=== PATIENT | female | born 1970 | race Caucasian/White ===

== ENCOUNTER → 2018-04-03 16:07 | Outpatient (CLI) | payer BC, SELFPAY ==
--- NOTE | 2018-04-03 16:19 | MM_ITS ---
MM Dig screening mamm BI w/CAD ORDERING PHYSICIAN : Armen Ware MD PATIENT AGE: 47 years GENDER: Female COMPARISON: April 20172015, [facility] April 14, 2015 diagnostic right mammogram Also March 2014, January 2013, from [facility] INDICATION: ITS.REASON: Routine Screening Mammogram. No hormones no new complaints. Noncontributory family history. TECHNIQUE: Standard CC and MLO images were obtained. R2 CAD reviewed. FINDINGS: Relatively smaller volume breast bilaterally make this a slightly difficult mammogram for consistent positioning and thus interpretation. Mild asymmetry No suspicious or dominant mass. No suspicious calcifications. . RIGHT BREAST: No suspicious or definitive new findings . On the cc view there is area of density just lateral to the nipple which is stable/unchanged appearance since one of the 2015 cc view. This same density was seen in 2016 and 17 as well, but slightly accentuated due to overlapping shadows summation shadows on today's study. Probably follow-up in one year adequate . Also increased minimal density at margin of image. Inferior right breast on MLO view appears similar to 2016 exam. LEFT BREAST:No significant new findings. Unchanged. Follow-up in one year IMPRESSION: 1. No new areas of significant concern. Overall Stable bilateral mammogram, when compared back to 2014/2015 studies. Bilateral follow-up in one year recommended; and should be encouraged/emphasized BI-RADS Category: 2 Benign Finding(s) RECOMMENDED FOLLOW-UP: 1YR 1 YEAR FOLLOW-UP (A letter has been sent to the patient regarding results of the study.)
== END ==
PROVIDERS: Visit Provider Nurse Practitioner Obstetrics & Gynecology
DX: Z12.31 Encounter for screening mammogram for malignant neoplasm of breast (principal)
CPT/HCPCS: 77067

== ENCOUNTER → 2018-07-06 10:30 | Outpatient (CLI) | payer BC, SELFPAY ==
[2018-07-06 11:56] LABS: Alanine Aminotransferase 18 U/L (12-78); Albumin Level 3.2 gm/dL (3.4-5.0); Albumin/Globulin Ratio 0.9 (1.1-1.8); Alkaline Phosphatase 78 U/L (46-116); Aspartate Amino Transferase 12 U/L (15-37); Bilirubin,Total 0.4 mg/dL (0.2-1.0); Blood Urea Nitrogen 12 mg/dL (7-18); Calcium 8.4 mg/dL (8.5-10.1); Carbon Dioxide 28 mmol/L (21.0-32.0); Chloride 103 mmol/L (98-107); Chol/HDL Ratio 2.5 (1-3.5); Cholesterol 166 mg/dL (140-200); Creatinine,Serum 0.74 mg/dL (0.55-1.02); Estimated Glomerular Filt Rate 84 ml/min (>60); GFR (African American) 102 ML/MIN (>60); Globulin 3.6 gm/dl (1.3-3.2); Glucose 85 mg/dL (74-106); HDL Cholesterol 67 mg/dL (29-89); LDL Cholesterol 82 mg/dL (0-130); Sodium 139 mmol/L (136-145); Total Protein,Serum 6.8 gm/dL (6.4-8.2); Triglycerides 83 mg/dL (30-200); VLDL Cholesterol 17 mg/dL (0-40)
[2018-07-06 12:20] LABS: Basophils % 0.4 % (0.1-2.0); Eosinophils # 0.1 K/mm3 (0.0-0.4); Eosinophils % 1.2 % (0.1-12.0); Hematocrit 38.6 % (37.0-47.0); Hemoglobin 12.6 g/dL (12.2-16.2); Lymphocytes % 21.7 % (10-50); Mean Corpuscular HGB Conc 32.7 g/dL (31.8-35.4); Mean Corpuscular Volume 91.7 fl (81-99); Mean Platelet Volume 8.5 fl (7.4-10.4); Monocytes # 0.5 K/mm3 (0.1-1.0); Monocytes % 4.8 % (1.7-9.3); Neutrophils # 6.8 K/mm3 (1.8-7.8); Platelet Count 301 K/mm3 (142-424); Red Blood Count 4.21 M/mm3 (4.20-5.40); Red Cell Distribution Width 12.9 % (11.5-17.5); White Blood Count 9.4 K/mm3 (4.8-10.8)
== END ==
PROVIDERS: Visit Provider Nurse Practitioner Obstetrics & Gynecology
DX: Z01.419 Encounter for gynecological examination (general) (routine) without abnormal findings (principal)
CPT/HCPCS: 36415; 80053; 80061; 85025

== ENCOUNTER → 2019-07-11 09:44 | Outpatient (CLI) | payer BC, SELFPAY ==
--- NOTE | 2019-07-11 09:44 | MM_ITS ---
PROCEDURE: MM DIG SCREENING MAMM BI W/CAD CLINICAL INDICATION: Routine Screening Mammogram There is no personal or family history of breast cancer COMPARISON: [facility] DIG MAMM-SCREEN GEOFFREY from 04/18/2016 [facility] DIG MAMM-SCREEN GEOFFREY W/CAD from 04/19/2017 [facility] MM Dig screening mamm BI w/CAD from 04/03/2018 TECHNIQUE: Standard CC and MLO images were obtained. Dell images were performed. FINDINGS: Moderate diffuse fibroglandular densities are seen in both breast and the findings of bilateral and symmetrical. There is no suspicious lesion in either breast and no suspicious microcalcifications. There is a stable tiny nodular benign-appearing density near the axillary tail right breast. IMPRESSION: Fibrofatty parenchyma with no suspicious BI-RAD Category: 2 Benign Finding(s) FOLLOW-UP: 1YR 1 Year Follow-up (A letter has been sent to the patient regarding results of the study.) Dictated by: Dr. Darrius Jackson MD 07/15/2019 11:[address] Darrius Jackson MD in [place] 07/15/2019 11:12
== END ==
PROVIDERS: PCP Nurse Practitioner Obstetrics & Gynecology; Visit Provider Nurse Practitioner Obstetrics & Gynecology
DX: Z12.31 Encounter for screening mammogram for malignant neoplasm of breast (principal)
CPT/HCPCS: 77063; 77067

== ENCOUNTER → 2019-07-11 10:25 | Outpatient (CLI) | payer BC, SELFPAY ==
[2019-07-11 10:52] LABS: Basophils % 0.4 % (0.1-2.0); Eosinophils # 0.1 K/mm3 (0.0-0.4); Eosinophils % 0.7 % (0.1-12.0); Hematocrit 38.6 % (37.0-47.0); Hemoglobin 12.4 g/dL (12.2-16.2); Lymphocytes % 21.2 % (10-50); Mean Corpuscular HGB Conc 32.2 g/dL (31.8-35.4); Mean Corpuscular Hemoglobin 30.4 pg (27.0-31.2); Mean Corpuscular Volume 94.4 fl (81-99); Mean Platelet Volume 7.8 fl (7.4-10.4); Monocytes # 0.4 K/mm3 (0.1-1.0); Monocytes % 4.4 % (1.7-9.3); Neutrophils # 6.8 K/mm3 (1.8-7.8); Neutrophils % 73.4 % (37.0-80.0); Platelet Count 343 K/mm3 (142-424); Red Blood Count 4.09 M/mm3 (4.20-5.40); Red Cell Distribution Width 12.7 % (11.5-17.5); White Blood Count 9.2 K/mm3 (4.8-10.8)
[2019-07-11 12:11] LABS: Alanine Aminotransferase 16 U/L (12-78); Albumin Level 3.4 gm/dL (3.4-5.0); Albumin/Globulin Ratio 1.1 (1.1-1.8); Alkaline Phosphatase 81 U/L (46-116); Anion Gap 11.1 mEq/L (5-15); Aspartate Amino Transferase 12 U/L (15-37); Bilirubin,Total 0.3 mg/dL (0.2-1.0); Blood Urea Nitrogen 9 mg/dL (7-18); Calcium 8.4 mg/dL (8.5-10.1); Carbon Dioxide 28 mmol/L (21.0-32.0); Chloride 104 mmol/L (98-107); Chol/HDL Ratio 2.6 (1-3.5); Cholesterol 164 mg/dL (140-200); Estimated Glomerular Filt Rate 77 ml/min (>60); GFR (African American) 93 ML/MIN (>60); Globulin 3.1 gm/dl (1.3-3.2); Glucose 87 mg/dL (74-106); HDL Cholesterol 62 mg/dL (29-89); LDL Cholesterol 85 mg/dL (0-130); Potassium 4.1 mmoL/L (3.5-5.1); Sodium 139 mmol/L (136-145); Total Protein,Serum 6.5 gm/dL (6.4-8.2); Triglycerides 84 mg/dL (30-200); VLDL Cholesterol 17 mg/dL (0-40)
== END ==
PROVIDERS: Visit Provider Nurse Practitioner Obstetrics & Gynecology
DX: Z01.419 Encounter for gynecological examination (general) (routine) without abnormal findings (principal)
CPT/HCPCS: 36415; 80053; 80061; 85025

== ENCOUNTER 2020-09-21 15:00 | Outpatient (RCR) | payer BC, SELFPAY | END 2020-09-21 15:23 | disposition home or self-care (01) | LOC: OT 15:00 | PROVIDERS: Visit Provider Student in an Organized Health Care Education/Training Program | DX: I63.9 Cerebral infarction, unspecified; R53.1 Weakness | CPT/HCPCS: 97110; 97165; 97530 ==

== ENCOUNTER 2020-09-28 14:00 | Outpatient (RCR) | payer BC, SELFPAY | END 2020-10-18 13:52 | disposition home or self-care (01) | LOC: PT.CARL 14:00 | PROVIDERS: Visit Provider Student in an Organized Health Care Education/Training Program | DX: I63.9 Cerebral infarction, unspecified (principal); R53.1 Weakness | CPT/HCPCS: 97110; 97163 ==

== ENCOUNTER → 2020-12-17 09:52 | Outpatient (CLI) | payer BC, SELFPAY ==
--- NOTE | 2020-12-17 09:59 | MM_ITS ---
PROCEDURE INFORMATION: Exam: MG Screening 3D Mammography Exam date and time: 12/17/2020 9:59 AM Age: 50 years old Clinical indication: Screening mammogram TECHNIQUE: Imaging protocol: Screening tomosynthesis and 2D mammography including computer-aided detection (CAD) when performed. COMPARISON: 1. MG MM DIG SCREENING MAMM BI W/CAD 07/11/2019 9:57 AM 2. MG [facility] MM Dig screening mamm BI w/CAD 04/03/2018 4:24 PM 3. MG [facility] DIG MAMM-SCREEN GEOFFREY W/CAD 04/19/2017 5:01 PM 4. MG [facility] DIG MAMM-SCREEN GEOFFREY 04/18/2016 4:24 PM FINDINGS: MAMMOGRAPHY: Breast composition: There are scattered areas of fibroglandular density. Mass: None. Architectural distortion: No new or suspicious architectural distortion. Calcifications: No new or suspicious calcifications are present Asymmetric density: No new or suspicious asymmetric density is present Skin thickening: None. Axillary adenopathy: None. IMPRESSION: No mammographic evidence of malignancy. Recommend annual screening mammography unless otherwise clinically indicated. ASSESSMENT: BI-RADS category 1: Negative
== END ==
PROVIDERS: PCP Internal Medicine; Visit Provider Internal Medicine
DX: Z12.31 Encounter for screening mammogram for malignant neoplasm of breast (principal)
CPT/HCPCS: 77063; 77067

== ENCOUNTER → 2021-04-20 11:25 | Outpatient (CLI) | payer BC, SELFPAY ==
--- NOTE | 2021-04-20 11:33 | XR_ITS ---
PROCEDURE: XR SHOULDER RT MIN 2V CLINICAL INDICATION: RT SHOULDER TENDONITIS COMPARISON: No exams were available for comparison FINDINGS: No fracture or dislocation. No lytic or blastic change. There is normal mineralization. The joint spaces are well-preserved. No significant degenerative/arthritic changes. No erosive changes evident. 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 IMPRESSION: Negative right shoulder. Right-sided cervical rib Dictated by: Hitesh Shah MD 04/20/2021 13:15 Hitesh Shah MD in [place] 04/20/2021 13:15
== END ==
PROVIDERS: PCP Internal Medicine; Visit Provider Internal Medicine
DX: M77.8 Other enthesopathies, not elsewhere classified (principal)
CPT/HCPCS: 73030

== ENCOUNTER → 2021-04-22 14:16 | Outpatient (CLI) | payer BC, SELFPAY | PROVIDERS: Visit Provider Physician Assistant | DX: Z20.822 Contact with and (suspected) exposure to COVID-19 (principal) | CPT/HCPCS: C9803; U0003; U0005 ==

== ENCOUNTER 2024-09-16 16:26 | Outpatient (CLI) | payer BC, SELFPAY ==
--- NOTE | 2024-09-16 16:30 | MM_ITS ---
PROCEDURE INFORMATION: Exam: MG Bilateral Screening 3D Mammography Exam date and time: 09/16/2024 4:54 PM Age: 54 years old Clinical indication: Screening examination TECHNIQUE: Imaging protocol: Bilateral Screening tomosynthesis and 2D mammography including computer-aided detection (CAD) when performed. COMPARISON: MG MM DIG SCREENING MAMM BI W/CAD 12/17/2020 9:55 AM FINDINGS: MAMMOGRAPHY: Breast composition: There are scattered areas of fibroglandular density. Mass: No suspicious masses. Architectural distortion: None. Calcifications: No suspicious calcifications. Asymmetric density: None. Skin thickening: None. Axillary adenopathy: None. IMPRESSION: No mammographic evidence of malignancy. Annual screening is recommended unless otherwise clinically indicated. ASSESSMENT: BI-RADS Category 1: Negative.
== END 2024-09-16 23:59 | disposition home or self-care (01) ==
LOC: RAD 16:27
PROVIDERS: PCP Nurse Practitioner Family; Visit Provider Nurse Practitioner Family
DX: Z12.31 Encounter for screening mammogram for malignant neoplasm of breast (principal)
CPT/HCPCS: 77063; 77067

== ENCOUNTER 2025-04-02 14:43 | Outpatient (CLI) | payer BC, SELFPAY ==
--- NOTE | 2025-04-02 14:45 | CT_ITS ---
FINAL REPORT TECHNIQUE: Axial CT images were performed from the lung bases through the iliac crests. Coronal and sagittal reformats were submitted.This study was performed with techniques to keep radiation doses as low as reasonably achievable (ALARA). Individualized dose reduction techniques using automated exposure control or adjustment of mA and/or kV according to the patient's size were employed. CLINICAL HISTORY: EPIGASTRIC LUMP COMPARISON: None FINDINGS: CT ABDOMEN WITHOUT CONTRAST: The lung bases are clear. The unenhanced liver parenchyma is homogeneous. The gallbladder is partially contracted. The spleen, pancreas, and adrenals are unremarkable. There is no evidence of nephrolithiasis or hydronephrosis. The stomach is distended with fluid and air. There is no distention of the small bowel. Stool is present in the colon. There is no mass or adenopathy. There is a small fat-containing umbilical hernia present. IMPRESSION: No acute intra-abdominal or intrapelvic process identified. Reviewed, Interpreted and Dictated by Giovana Hernandez MD Transcribed by Hina Ponce Authenticated and [facility]
--- OUTSIDE RECORDS SUMMARY | 2025-04-02 14:48 | XMS_ITS | Clinical Summary ---
Author Organization [facility] Address [address] [place] [address] Care Team Providers Care Starting Gate Driver Name Role Phone Magdalena Christensen MD Primary Care Provider [phone] Yolanda Martinez PA Unavailable [phone] Allergies No known active allergies Medications Multiple Vitamins-Mineral s (MULTIVITAMIN WOMEN PO) Take by mouth. 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 - Presented in August 2020 with [id number] subarachnoid hemorrhage - Underwent initial IR coil embolization August 17, 2020 - 04/26: cerebral catheter angiography showing 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 2.6 x 3.8 mm with a 3.1 mm neck - 05/17: underwent successful flow diversion embolization in IR - Patient is on ASA/Plavix - SBP<160 - Admit to Neuro ICU Resolved Problems Problem Noted Date Diagnosed Date Resolved Date Cerebral aneurysm 05/17/2021 05/17/2021 Immunizations Immunization Administration Dates Next Due Hep B, adult 07/06/1999 Family History Medical History Relation Name Comments Stroke Mother Stroke Other Relation Name Status Comments Mother Other Social History Tobacco Use Types Packs/Day Years Used Date Smoking Tobacco: Never Smokeless Tobacco: Never Tobacco Cessation:Counseling Given: Not Answered Alcohol Use Standard Drinks/Week Comments Yes 0 (1 standard drink = 0.6 oz pur e alcohol) occasionally Comments No Sex and Gender Information Value Date Recorded Sex Assigned at Female 05/17/2021 8:57 AM EST Legal Sex Female 7:46 PM EDT Gender Identity Female 05/17/2021 8:57 AM EST Sexual Orientation Not on file Last Filed Vital Signs Vital Sign Reading Time Taken Comments Blood Pressure 120/87 05/17/2022 2:30 PM EST Pulse 67 05/17/2022 3:00 PM EST Temperature 36.2 C (97.2 F) 05/17/2022 1:52 PM EST Respiratory Rate 24 05/17/2022 3:00 PM EST Oxygen Saturation 93% 05/17/2022 3:00 PM EST Inhaled Oxygen Concentration - - Weight 69 kg (152 lb 1.9 oz) 05/17/2022 10:08 AM EST Height 165.1 cm (5' 5 ) 05/17/2022 10:08 AM EST Body Mass Index 25.31 05/17/2022 10:08 AM EST Plan of Treatment Health Maintenance Due Date Last Done Comments [facility]-Depression Screening 1972 [facility]-HIV Screening 1972 [facility]-Hepatitis C Screening 1972 [facility]-Infant/Child/Adol SDOH Screenings 1972 [facility]- SDOH Screenings 1990 [facility]-Adult SDOH Screenings 1990 [facility]-DTaP,Tdap,and Td Vaccines (1 - Tdap) 1991 [facility]-Hepatitis B Vaccines (2 of 3 - 19+ 3-dose series) 08/03/1999 07/06/1999 [facility]-Pap Smear 11/07/2009 11/07/2006, 10/16, 10/20/2004, Additional history exists [facility]-Cervical Cancer Screening 11/08/2011 [facility]-HPV/Cotest 11/08/2011 11/07/2006, 10/16, 10/20/2004, Additional history exists CT Colonography 2017 Colonoscopy 2017 FIT-DNA 2017 FIT 2017 FOBT 2017 Sigmoidoscopy 2017 [facility]-Colorectal Cancer Screening 2017 [facility]-Breast Cancer Screening 2022 [facility]-Pneumococcal Vaccine: 50+ Years (1 of 1 - PCV) 2022 [facility]-Zoster Vaccines (1 of 2) 2022 ABE-LIKLT-13 Vaccine (3 - season) 2025 08/12/2020, 07/07/2020 [facility]-Influenza Vaccine (#1) 2025 [facility]-Obesity Intervention Completed 05/15/2022 HPV Vaccines Aged Out No longer eligi ble based on patient's age to complete this topic [facility]-HIB Vaccines Aged Out No longer e ligible based on patient's age to complete this topic [facility]-Hepatitis A Vaccines Aged Out No longer eligible based on patient's age to complete this topic [facility]-IPV Vaccines Aged Out No longer e ligible based on patient's age to complete this topic [facility]-Rotavirus Vaccines Aged Out No lo nger eligible based on patient's age to complete this topic Goals Goal Patient Goal Type Associated Problems Recent Progress Patient-Stated? Author Exercise at Least 20 Minutes per Day General No Merly Raza APRN, CANDY Patient to engage in self-care activities General No Merly Raza APRN, DNP Patient will adhere to medication regimen General No Merly Raza APRN, CANDY Medical Devices Implanted Type Area Interviewing Clerk Device Identifier Shelf Expiration Date Model / Serial / Lot 4.5mm X 15mm Mohini Casper Implanted:Qty: 1 on 05/17/2021 by Karen Coats MD at [facility] [employer] 12/27/2022 [id number] / / [id number] Closure Device Vip Angioseal 8 Fr - [id number] Implanted:Qty: 1 on 05/17/2021 by Karen Coats MD at [facility] [id number] 03/17/2022 [id number] / / [id number] Procedures Procedure Name Priority Date/Time Associated Diagnosis Comments CYTO DATA CONVERSION Routine 11/07/2006 12:00 AM EDT from Last 3 Months or Most Recently Relevant to Health Maintenance Results * Cytology (11/07/2006 12:00 AM EDT) 11/07/2006 11/09/2006 Narrative SUNQUEST - 11/14/2006 1:34 PM EDT [facility] MR #: [id number] [facility] L[place] HERNAN[place]Z [place], [place] [address] 1970 (Age: 36) FW Collect Date: 11/07/2006 00:00 Receipt Date: 11/09/2006 00:00 Page 1 DEPARTMENT OF PATHOLOGY AND LABORATORY MEDICINE CYTOPATHOLOGY REPORT Email: [email or web address] ATTENDING MD/Practitioner: Gila Boateng MD Service: [facility] Location: [facility] Reported: 11/14/2006 13:34 Collected: 11/07/2006 00:00 INTERPRETATION A. THIN PREP (CERVICAL/VAGINAL): NEGATIVE FOR INTRAEPITHELIAL LESION OR MALIGNANCY. SHIFT IN KALI SUGGESTIVE OF BACTERIAL VAGINOSIS. SATISFACTORY FOR EVALUATION; ENDOCERVICAL/ TRANSFORMATION ZONE COMPONENT PRESENT. Slide scanned and imaged by [employer] ThinPrep Imaging System with manual review of all selected mark. Electronically Signed Out By JEAN Moreno(ASCP) JEAN Moreno(ASCP) Cervical cytology is a screening test primarily for squamous cancers and precursors and has associated false negative and positive results. New technologies such as liquid based sampling may decrease but will not eliminate all false negative results. Regular screening and follow-up of unexplained clinical signs and symptoms are recommended to minimize false negative results. Please see the ASCCP website (www.asccp.org) for followup recommendations. If HPV testing was requested, correlation with the results is suggested (please call Microbiology at [phone] for results). CLINICAL INFORMATION: Menstrual History: Cyclic Date of Last Menstrual Period: 10/20/06 Contraceptive History: control pills SPECIMEN DESCRIPTION: A: THIN PREP (CERVICAL/VAGINAL) THIN PREP PROCESS CELLULAR ENHANCEMENT ICD: V76.2 CERVIX, SPECIAL SCREENING FOR MALIGNANT NEOPLASM 041.89 OTHER SPECIFIED BACTERIAL INFECTIONS F: A; RT IMAGE [id number] SNOMED CODES: A; [id number] In cases where a pathologist has signed out the report, the service has been rendered in part by a resident. The signing pathologist has performed and is responsible for the reported pathologic evaluation. us Historical Provider LAB PATHOLOGY ORDERABLES Fin al Result SUNQUEST from Last 3 Months or Most Recently Relevant to Health Maintenance Insurance [facility] Advance Directives * Full Code (Latest Code Status on File) Date Activated Date Inactivated Comments 10/04/2021 1:21 PM 10/05/2021 2:43 AM Question Answer Comments Patient has decision-making capacity? Yes * Full Code Date Activated Date Inactivated Comments 05/17/2021 4:18 PM 05/18/2021 1:48 PM Question Answer Comments Patient has decision-making capacity? Yes Care Teams Starting Gate Driver Relationship Specialty Start Date End Date Magdalena Christensen MD [address] [place] [address] PCP - General 04/26/21 Yolanda Martinez PA [address] [place] [id number] Physician Web Development Instructor Neurosurgery 05/03/21
--- OUTSIDE RECORDS SUMMARY | 2025-04-02 14:49 | XMS_ITS | Continuity of Care Document ---
Author Organization [facility] Address [address] [place] [id number] Assessment No assessment recorded. Plan of Treatment Reminders Order Date Submit Date Provider Last Modified By Organization Details Last Modified Time Details Appointments None recorded. Lab urinalysis, dipstick 2024 025 [facility], [address] [place] [address], [address], 17:06:34 culture, urine 2024 025 [facility], [address], [address], [place], [address], 22:06:20 Referral general surgeon referral 2024 025 [facility] Gerardo Devlin , [address], [address], [place], [address], 13:21:36 Procedures None recorded. Surgeries None recorded. Imaging CT, abdomen, w/o contrast - r/o hernia 2024 025 [facility] ([facility]), [address], [place], [address], 13:19:40 Medication Orders cephalexin 500 mg capsule 2024 025 [facility], [address] [place], [place], [id number], 05:02:02 Patient TargetsNo targets recorded. Patient Instructions Encounter Date Encounter Id Patient Instructions Last Modified By Organization Details Last Modified Time 03/17/2025 [id number] body mass index: care instructions [email or web address] Not available 03/17/2025 17:06:34 learning about healthy weight efryman Not available 03/17/2025 17:06:34 Reason for Referral General Surgeon Referral for Epigastric mass Referring Physician: Coty Skaggs, Family Medicine, Encounter Date: 03/17/2025 Results Created Date Observation Date Name Description Value Unit Range Abnormal Flag Note LastModifiedBy Organization Detail LastModifiedTime 03/17/2003/19/2025 URINE CULTU RECONSUELO NE urine culture, routine Final report abnormal Not Available [facility] ([facility]) [address] [facility], [place], [address], 03/19/2025 22:06:20 03/17/2003/19/2025 URINE CULTU RECONSUELO NE result 1 Escher ichia coli abnormal Cefaz pablito with an ARLINE <=16 predi cts susce ptibi lity to the oral agent s cefac tyron, cefdi mukul, cefpo doxim e, cefpr ozil, cefur oxime , cepha lexin , and lorac arbef when used for thera py of uncom plica gissell urina ry tract infec tions due to E. coli, Klebs iella pneum oniae , and Prote us mirab ilis. Great er than 100,0 00 colon y formi ng units per mL Not Available [facility] ([facility]) [address] [facility] [address], [place], [address], 03/19/2025 22:06:20 03/17/2003/19/2025 URINE CULTU RECONSUELO NE antimicrobia l susceptibili ty Commen t S = Susce ptibl e; I = Inter media te; R = Resis tant P = Posit silverio; N = Negat silverio MICS are expre ssed in micro grams per mL Antib iotic RSLT# 1 RSLT# 2 RSLT# 3 RSLT# 4 Amoxi cilli n/Cla vulan ic Acid S Ampic illin S Cefaz pablito S Cefep ruddy S Cefox itin S Cefpo doxim e S Ceftr iaxon e S Cipro floxa ozzy S Ertap enem S Genta micin S Levof loxac in S Merop enem S Nitro furan toin S Piper acill in/Ta zobac long S Tetra cycli ne S Tobra mycin S Trime thopr im/Hawk lfa S Not Available [facility] ([facility]) [address] [facility] [address], [place], [address], 03/19/2025 22:06:20 03/17/2003/17/2025 urina lysis , dipst ick Leukocytes Small Not Available [address], [address], 03/17/2025 16:28:56 03/17/20 25 03/17/2025 urina lysis , dipst ick Nitrite positi ve Not Available [address], [address], 03/17/2025 16:28:56 03/17/20 25 03/17/2025 urina lysis , dipst ick Urobilinogen .2 Not Available [place] [address], [address], 03/17/2025 16:28:56 03/17/20 25 03/17/2025 urina lysis , dipst ick Protein Negati ve Not Available [address], [address], 03/17/2025 16:28:56 03/17/20 25 03/17/2025 urina lysis , dipst ick pH 5.5 Not Available [address], [address], 03/17/2025 16:28:56 03/17/20 25 03/17/2025 urina lysis , dipst ick Blood Non-He molyze d: Trace Not Available [address], [address], 03/17/2025 16:28:56 03/17/20 25 03/17/2025 urina lysis , dipst ick Specific [place] 1.015 Not Available [address], [address], 03/17/2025 16:28:56 03/17/2003/17/2025 urina lysis , dipst ick Ketone Negati ve Not Available [address], [address], 03/17/2025 16:28:56 03/17/20 25 03/17/2025 urina lysis , dipst ick Bilirubin Negati ve Not Available [address], [address], 03/17/2025 16:28:56 03/17/2003/17/2025 urina lysis , dipst ick Glucose Negati ve Not Available [address], [address], 03/17/2025 16:28:56 03/17/2003/17/2025 urina lysis , dipst ick Appearance Clear Not Available [address], [address], 03/17/2025 16:28:56 03/17/20 25 03/17/2025 urina lysis , dipst ick Color Yellow Not Available [address], [address], 03/17/2025 16:28:56 Result Notes None recorded. Problems Name Problem SNOMED Code Status Onset Date Resolution Date Notes Provider Name and Address Organization Details Recorded Time Intracranial aneurysm 790056521 Active 2020 Alycia Benntet null, [place] - [facility] 15:55:05 Subarachnoid hemorrhage 22482045 Active 2020 Alyciajosias Goffs null, [place] - [facility] 15:55:22 Problem Notes None recorded. Procedures Surgical History Date Name Laterality Status Provider Name and Address Organization Details Recorded Time Date of Last Mammogram completed Alycia Bennett [place] - [facility] 09/19/2024 11:00:10 Imaging Results None recorded. Procedure Notes None recorded. Medical Equipment None Reported. Allergies No known drug allergies Medications Name Sig Start Date Stop Date Status Note LastModified by Organization Details LastModified Time aspirin 81 mg tablet,de layed release Take 1 tablet every day by oral route. active Not Available Not Available No t Available cephalexi n 500 mg capsule Take 1 capsule twice a day by oral route for 7 days. 03/31 completed Not Available Not Available Not Available Black Cohash 1 bid 03/17 completed for hot flashes Not Available Not Available Not Available Vitals Date Recorded Body height Respiratory rate Body mass index (BMI) Body weight Heart rate Oxygen saturation Oxygen saturation in Arterial blood by Pulse oximetry Systolic And Diastolic Provider Name and Address Organization Details Last Updated DateTime 165.1 cm 18 /min 25.6 kg/m2 62927.2 2 g 72 /min 96 % 96 % 120/74 mm[Hg] Alycia Goffs [place] - [facility] 16:25:27 Social History Question Answer Notes LastModified by Organizat ion Details LastModified Time Tobacco Smoking Status Never Smoker Alycia Bennett null, [place] - [facility] 09/09/2024 15:54:33 Do You Have An Advance Directive? No Information not available 09/09/2024 Are You Blind Or Do You Have Difficulty Seeing? No Information not available 09/09/2024 What Is Your Level Of Caffeine Consumption? Occasional Information not available 09/09/2024 Are You Deaf Or Do You Have Serious Difficulty Hearing? No Information not available 09/09/2024 What Type Of Diet Are You Following? REGULAR Information not available 09/09/2024 What Is The Highest Grade Or Level Of School You Have Completed Or The Highest Degree You Have Received? [id number] Information not available 09/09/2024 Have There Been Any Changes To Your Family Or Social Situation? No Information no t available 09/09/2024 What Is The Fluoride Status Of Your Home? Unknown Information not available 09/09/2024 Do You Have A Medical Power Of Addiction Psychiatrist? No Information not available 09/09/2024 What Was The Date Of Your Most Recent Tobacco Screening? 09/09/2024 Information not available 09/09/2024 How Many Children Do You Have? 1 Information not available 09/09/2024 What Is Your Relationship Status? Information not available 09/09/2024 Do You Have Smoke And Carbon Monoxide Detectors In Your Home? Yes Information not available 09/09/2024 Has Tobacco Cessation Counseling Been Provided? No Information not available 09/09/2024 Do You Have Difficulty Walking Or Climbing Stairs? No Information not available 09/09/2024 Sex: Female Functional Status Question Answer Note LastModified by Organizat ion Details LastModified Time Do you use any illicit or recreational drugs? No Information not available 09/09/2024 Do you or have you ever used any other forms of tobacco or nicotine? No Information not available 09/09/2024 What is your level of alcohol consumption? None Information not available 09/09/2024 Are you currently employed? Yes Information not available 09/09/2024 Do you have transportation difficulties? No Information not available 09/09/2024 Are you able to walk independently without assistance or assistive devices? YESWOREST Information not available 09/09/2024 Do you have difficulty doing errands alone? No Information not available 09/09/2024 Are you able to care for yourself independently? Yes Information not available 09/09/2024 What is your occupation? [employer] Information not available 09/09/2024 Do you have difficulty dressing, bathing, grooming, or toileting? No Information not available 09/09/2024 What is your exercise level? Occasional Information not available 09/09/2024 Mental Status Question Answer Note LastModified by Organizat ion Details LastModified Time Do you feel stressed (tense, restless, nervous, or anxious, or unable to sleep at night)? AE1265-4 Information not available 09/09/2024 Do you have difficulty concentrating, remembering or making decisions? No Information no t available 09/09/2024 Family History Relationship Description Onset Age of this Age Resolved Age Notes LastModified by Organization Details LastModified Time Father No current problems or disability bstears Not available 09/09 15:54:18 Mother No current problems or disability bstears Not available 09/09 15:54:18 Medical History No medical history recorded. Gynecological History Statement/Question Response Menses Monthly N Date of Last Colonoscopy Date of Last Mammogram 09/16/2024 LMP Unknown Most Recent Bone Density Obstetrics History GPAL:G 0 P 0 0 0 0 Immunizations Vaccine Type Date Status Note Provider Name and Address Organization Details Recorded Time Hep B, adult 000 completed Not Available [facility] 03/17/2025 15:22:01 COVID-19, mRNA, LNP-S, PF, 30 mcg/0.3 mL dose 021 completed Not Available [facility] 03/17/2025 15:22:01 COVID-19, mRNA, LNP-S, PF, 30 mcg/0.3 mL dose 021 completed Not Available [facility] 03/17/2025 15:22:01 Tdap 025 cancelled patient objection Coty Skaggs APRN [address], [place], [address], [place] - [facility] 03/17/2025 17:06:49 zoster recombinant 025 cancelled patient objection Coty Skaggs APRN [address], [place], [address], [place] - [facility] 03/17/2025 17:06:49 Pneumococcal conjugate PCV20, polysaccharide XDP305 conjugate, adjuvant, PF 025 cancelled patient objection Coty Almeidashanae, GENARO [address], [place], [address], [place] - [facility] 03/17/2025 17:06:49 Influenza, split virus, trivalent, PF 025 cancelled patient objection Coty Moreaudi, GENARO [address], [place], [address], [place] - [facility] 03/17/2025 17:06:49 Past Encounters Encounter ID Performer Location Encounter Start Date Encounter Closed Date Diagnosis/Indication Diagnosis SNOMED-CT Code Diagnosis ICD10 Code Diagnosis IMO Codes Diagnosis Note [id number] Coty Moreaudi, GENARO [address] [address] 03/17/2025 15:21:37 03/17/2025 17:00:40 Overweight in adulthood with body mass index of 25 or more but less than 30 125918877 E66.3 Z68.25 6987957937 25.6 Tetanus di phtheria and acellular pertussis vaccination declined 7987723070 0207564 Z28.[address] vaccination declined 6519132325 102 Z28.21 2071529686 Pneumococc al vaccination declined 945114888 Z28.21 78665240 HIV screen ing declined 7668385607 43585 Z53.20 1779057029 Hepatitis C screening declined 9203045045 5105 Z53.20 1411116637 Screening for malignant neoplasm of cervix declined 339795386 Z53.20 6894973078 Influenza vaccination declined 467628029 Z28.21 45074410 Acute urin sharon tract infection 103132735 N39.0 736793 increase fluidscran angel juicewipe front to backvoid after intercours rc not hold urineantib iotics as orderedcot ton underwearr eturn if symptoms worsen or do not improve General ex amination of patient 232724799 Z00.00 Exercises education, guidance, and counseling 684992189 Z71.82 The patient was advised to continue a healthy diet and exercise regularly. stopped drinking soda and has lost 13lbs since last visit in August 2024 Dietary ma ni surveillance 973744988 Z71.3 Epigastric mass 74409375 2 R19.06 81957872 if pain returns or worsen go to ed- discussed risk Health Concerns Section Related Observation LastModified by Organization Detai ls LastModified Time None Recorded Concern Status LastModified by Organization Details LastModified Time None Recorded Payers Encounter Date Sequence Insurance Name Policy Number Policy Gonzalez Covered Member ID Gonzalez Member ID Guarantor Name 03/17/2025 1 PRASHANTH (PPO) [id number] 5 Inez Wisdom [id number] Inez Wisdom Notes Date Note Type Note Provider Name and Address Organization Details Recorded Time 03/17/2025 text/html ROS as noted in the HPI 54 year old female who presents to the office today for a 6 month check up, she has concerns ofcloudy/smelling urine, for couple weeksbulge in abdomen- patient thinks a hernia, been there for about 5 yrs but seems to be getting bigger. pt states sometimes she gets pain in the bulge and causes soa Eugonda Giles, WHEELAGE CLERK [address], [place], [address], [place] - [facility] 03/17/2025 17:09:32 OBGyn Episode No OBEpisode recorded.
--- OUTSIDE RECORDS SUMMARY | 2025-04-02 14:49 | XMS_ITS | Clinical Summary ---
Author Organization [facility] Address [address] [place] [address] Phone Care Team Providers Care Edging Machine Operator Name Role Phone Provider, Not In Epic Primary Care Provider Unav ailable Social History Tobacco Use Types Packs/Day Years Used Date Smoking Tobacco: Never Assessed Comments Unknown Sex and Gender Information Value Date Recorded Sex Assigned at Not on file Legal Sex Female 10:19 AM EDT Gender Identity Not on file Sexual Orientation Not on file Plan of Treatment Health Maintenance Due Date Last Done Comments Annual Wellness Exam 1975 DTaP/TDaP/Td (1 - Tdap) 1991 Hepatitis B Vaccine (1 of 3 - 19+ 3-dose series) 1991 Cervical Cancer Screening 1993 Pap Smear 1993 HPV/Pap Cotest 2002 Breast Cancer Screening 2012 Cologuard 2017 Colon Cancer Screening 2017 Colonoscopy 2017 FIT 2017 Sigmoidoscopy 2017 Virtual Colonography 2017 Pneumococcal Vaccine 50+ (1 of 1 - PCV) 2022 Zoster (1 of 2) 2022 COVID-19 Vaccine (1 - 2023-2 5 season) 2025 Influenza Vaccine (#1) 2025 Meningococcal B Vaccine Aged Out No l onger eligible based on patient's age to complete this topic Insurance [employer] PPO Care Teams Edging Machine Operator Relationship Specialty Start Date End Date Provider, Not In Epic PCP - General 01/01/13
--- OUTSIDE RECORDS SUMMARY | 2025-04-02 14:49 | XMS_ITS | Clinical Summary ---
Author Organization [facility] Address [address] [place] [address] Care Team Providers Care Latex Caster Name Role Phone Provider, No Known Primary Care Provider Unavail able Allergies No known active allergies Medications PREVIFEM 0.25-35 MG-MCG per tablet 02/28/2019 A ctive Active Problems No known active problems Family History Medical History Relation Name Comments Stroke Mother Relation Name Status Comments Mother Social History Tobacco Use Types Packs/Day Years Used Date Smoking Tobacco: Never Abuse Screen Answer Date Recorded Unsafe at Home or Work/School Not on file Feels Threatened by Someone? Not on file 05/2023 Does Anyone Keep You from Co ntacting Others or Doint Things Outside the Home? Not on file 03/29/2023 Physical Sign of Abuse Present Not on file 1 Housing Stability Answer Date Recorded Current Living Arrangements Not on file 03/18 Potentially Unsafe Housing Conditions Not on reyna e 03/29/2023 Family and Community Support Answer Chance e Recorded Help with Day-to-Day Activities Not on file 03/29/2023 Lonely or Isolated Not on file 03/29/2023 Employment Answer Date Recorded Do you want help finding or keeping work or a shree b? Not on file 03/29/2023 Disabilities Answer Date Recorded Concentrating, Remembering, or Making Decisions Difficulty Not on file 03/29/2023 Doing Errands Independently Difficulty Not on fi le 03/29/2023 Education Answer Date Recorded Help with school or training? Not on file Preferred Language Not on file 03/29/2023 Comments No Sex and Gender Information Value Date Recorded Sex Assigned at Not on file Legal Sex Female 10:47 AM EDT Gender Identity Not on file Sexual Orientation Not on file Last Filed Vital Signs Vital Sign Reading Time Taken Comments Blood Pressure 118/84 03/13/2019 11:03 AM EDT Pulse 77 03/13/2019 11:03 AM EDT Temperature 36.6 C (97.8 F) 03/13/2019 11:03 AM EDT Respiratory Rate 14 03/13/2019 11:0 3 AM EDT Oxygen Saturation 98% 03/13/2019 11: 03 AM EDT Inhaled Oxygen Concentration - - Weight 68.4 kg (150 lb 12.8 oz) 019 11:03 AM EDT Height 165.1 cm (5' 5 ) 03/13/2019 11:0 3 AM EDT Body Mass Index 25.09 03/13/2019 11:03 AM EDT Plan of Treatment Health Maintenance Due Date Last Done Comments Annual Gynecologic Pelvic and Breast Exam 1972 TDAP/TD VACCINES (1 - Tdap) 1991 MAMMOGRAM 2012 COLOGUARD 2017 COLON CANCER SCREENING 5 YEAR SIGMOIDOSCOPY 2017 COLONOSCOPY 2017 COL[address]AL CANCER SCREENING 2017 CT COLONOGRAPHY 2017 FECAL OCCULT BLOOD TEST 2017 FIT Testing (1 year) 2017 ANNUAL PHYSICAL 03/13/2019 HEPATITIS C SCREENING 03/13/2019 Pneumococcal Vaccine 50+ (1 of 1 - PCV) 2022 ZOSTER VACCINE (1 of 2) 2022 INFLUENZA VACCINE 01/16/2025 Insurance Care Teams Latex Caster Relationship Specialty Start Date End Date Provider, [place] [address] PCP - General 03/13/19
--- OUTSIDE RECORDS SUMMARY | 2025-04-02 14:49 | XMS_ITS | Data Portability ---
Author Organization [facility] Address [address] [place] [address] Assessment No assessment recorded. Plan of Treatment Reminders Order Date Submit Date Provider Last Modified By Organization Details Last Modified Time Details Appointments None recorded. Lab urinalysis, dipstick 2024 025 [facility], [address] [place] [address], [place], [address], 17:06:34 culture, urine 2024 025 [facility], [address], [address], [place], [address], 22:06:20 TSH + free T4, serum 2024 025 [facility], [address], [address], [place], [address], 11:08:01 noninvasive colorectal cancer DNA + occult blood screening, QL, stool 2024 025 [facility], [address], [address], [place], [address], 17:47:18 CMP, serum or plasma 2024 025 [facility], [address], [address], [place], [address], 11:08:02 CBC w/ auto diff 2024 025 [facility], [address], [address], [place], [address], 11:08:02 lipid panel, serum 2024 025 [facility], [address], [address], [place], [address], 11:08:03 Referral general surgeon referral 2024 025 [facility] Gerardo Devlin , [address], [address], [place], [address], 13:21:36 Procedures None recorded. Surgeries None recorded. Imaging CT, abdomen, w/o contrast - r/o hernia 2024 025 [facility] (Scheduling), [address], [place], [address], 13:19:40 MAMMO, screening, digital, bilateral 2024 025 [facility] (Scheduling), [address], [place], [address], 10:40:36 Medication Orders cephalexin 500 mg capsule 2024 025 [facility] [employer], [address] [place] [address], [id number], 05:02:02 Patient TargetsNo targets recorded. Patient Instructions Encounter Date Encounter Id Patient Instructions Last Modified By Organization Details Last Modified Time 03/17/2025 [id number] body mass index: care instructions efryman Not available 03/17/2025 17:06:34 learning about healthy weight efryman Not available 03/17/2025 17:06:34 Reason for Referral General Surgeon Referral for Epigastric mass Referring Physician: Coty Skaggs, Family Medicine, Encounter Date: 03/17/2025 Results Created Date Observation Date Name Description Value Unit Range Abnormal Flag Note LastModifiedBy Organization Detail LastModifiedTime 09/10/1909/10/2024 TSH+F REE T4 TSH 1.970 uIU/m L 0.450- 4.500 normal Not Available [facility] ([facility]) [address] [place], [address], 09/10/2024 11:08:01 09/10/1909/10/2024 TSH+F REE T4 T4,free(dire ct) 1.10 NG/dL 0.82-1 .77 normal Not Available [facility] ([facility]) [address] [place], [address], 09/10/2024 11:08:01 09/10/1909/10/2024 CBC WITH DIFFE RENTI AL/PL ATELE T WBC 6.8 x10e3 /uL 3.4-10 .8 normal Not Available [facility] ([facility]) [address] [place], [address], 09/10/2024 11:08:02 09/10/1909/10/2024 CBC WITH DIFFE RENTI AL/PL ATELE T RBC 4.42 x10e6 /uL 3.77-5 .28 normal Not Available [facility] ([facility]) [address] [place], [address], 09/10/2024 11:08:02 09/10/1909/10/2024 CBC WITH DIFFE RENTI AL/PL ATELE T hemoglobin 13.5 g/dL 11.1-1 5.9 normal Not Available [facility] ([facility]) [address] [place], [address], 09/10/2024 11:08:02 09/10/1909/10/2024 CBC WITH DIFFE RENTI AL/PL ATELE T hematocrit 41.0 % 34.0-4 6.6 normal Not Available [facility] ([facility]) [address] [place], [address], 09/10/2024 11:08:02 09/10/1909/10/2024 CBC WITH DIFFE RENTI AL/PL ATELE T MCV 93 fL 79-97 normal Not Available [facility] ([facility]) [address] [facility], [place], [address], 09/10/2024 11:08:02 09/10/19 25 09/10/2024 CBC WITH DIFFE RENTI AL/PL ATELE T MCH 30.5 pg 26.6-3 3.0 normal Not Available [facility] ([facility]) [address] [place], [address], 09/10/2024 11:08:02 09/10/19 25 09/10/2024 CBC WITH DIFFE RENTI AL/PL ATELE T MCHC 32.9 g/dL 31.5-3 5.7 normal Not Available [facility] ([facility]) [address] [place], [address], 09/10/2024 11:08:02 09/10/1909/10/2024 CBC WITH DIFFE RENTI AL/PL ATELE T RDW 12.8 % 11.7-1 5.4 Not Available [facility] ([facility]) [address] [place], [address], 09/10/2024 11:08:02 09/10/1909/10/2024 CBC WITH DIFFE RENTI AL/PL ATELE T platelets 293 x10e3 /uL 150-45 0 normal Not Available [facility] ([facility]) [address] [place], [address], 09/10/2024 11:08:02 09/10/19 25 09/10/2024 CBC WITH DIFFE RENTI AL/PL ATELE T neutrophils 54 % not estab. normal Not Available [facility] ([facility]) [address] [place], [address], 09/10/2024 11:08:02 09/10/19 25 09/10/2024 CBC WITH DIFFE RENTI AL/PL ATELE T lymphs 36 % not estab. normal Not Available [facility] ([facility]) [address] [facility], [place], [address], 09/10/2024 11:08:02 09/10/19 25 09/10/2024 CBC WITH DIFFE RENTI AL/PL ATELE T monocytes 8 % not estab. normal Not Available [facility] ([facility]) [address] [facility], [place], [address], 09/10/2024 11:08:02 09/10/19 25 09/10/2024 CBC WITH DIFFE RENTI AL/PL ATELE T eos 1 % not estab. normal Not Available [facility] ([facility]) [address] [facility], [place], [address], 09/10/2024 11:08:02 09/10/19 25 09/10/2024 CBC WITH DIFFE RENTI AL/PL ATELE T basos 1 % not estab. normal Not Available [facility] ([facility]) [address] [facility], [place], [address], 09/10/2024 11:08:02 09/10/19 25 09/10/2024 CBC WITH DIFFE RENTI AL/PL ATELE T immature cells ARMHOLE BASTER HAND Not Available [facility] ([facility]) [address] [place], [address], 09/10/2024 11:08:02 09/10/19 25 09/10/2024 CBC WITH DIFFE RENTI AL/PL ATELE T neutrophils (absolute) 3.7 x10e3 /uL 1.4-7. 0 normal Not Available [facility] ([facility]) [address] [place], [address], 09/10/2024 11:08:02 09/10/19 25 09/10/2024 CBC WITH DIFFE RENTI AL/PL ATELE T lymphs (absolute) 2.5 x10e3 /uL 0.7-3. 1 normal Not Available [facility] ([facility]) [address] [facility], [place], [address], 09/10/2024 11:08:02 09/10/19 25 09/10/2024 CBC WITH DIFFE RENTI AL/PL ATELE T monocytes(ab solute) 0.6 x10e3 /uL 0.1-0. 9 normal Not Available [facility] ([facility]) [address] [place], [address], 09/10/2024 11:08:02 09/10/19 25 09/10/2024 CBC WITH DIFFE RENTI AL/PL ATELE T eos (absolute) 0.1 x10e3 /uL 0.0-0. 4 normal Not Available [facility] ([facility]) [address] [facility], [place], [address], 09/10/2024 11:08:02 09/10/19 25 09/10/2024 CBC WITH DIFFE RENTI AL/PL ATELE T baso (absolute) 0.1 x10e3 /uL 0.0-0. 2 normal Not Available [facility] ([facility]) [address] [place], [address], 09/10/2024 11:08:02 09/10/19 25 09/10/2024 CBC WITH DIFFE RENTI AL/PL ATELE T immature granulocytes 0 % not estab. Not Available [facility] ([facility]) [address] [place], [address], 09/10/2024 11:08:02 09/10/19 25 09/10/2024 CBC WITH DIFFE RENTI AL/PL ATELE T immature grans (abs) 0.0 x10e3 /uL 0.0-0. 1 Not Available [facility] ([facility]) [address] [facility], [place], [address], 09/10/2024 11:08:02 09/10/19 25 09/10/2024 CBC WITH DIFFE RENTI AL/PL ATELE T NRBC ARMHOLE BASTER HAND Not Available [facility] ([facility]) [address], [place], [address], 09/10/2024 11:08:02 09/10/19 25 09/10/2024 CBC WITH DIFFE RENTI AL/PL ATELE T hematology comments: ARMHOLE BASTER HAND Not Available [facility] ([facility]) [address] [facility], [place], [address], 09/10/2024 11:08:02 09/10/19 25 09/10/2024 COMP. METAB OLIC PANEL (14) glucose 94 mg/dL 70-99 normal Not Available [facility] ([facility]) [address] [facility] [place], [address], 09/10/2024 11:08:02 09/10/19 25 09/10/2024 COMP. METAB OLIC PANEL (14) BUN 15 mg/dL 6-24 normal Not Available [facility] ([facility]) [address] [facility] [place], [address], 09/10/2024 11:08:02 09/10/19 25 09/10/2024 COMP. METAB OLIC PANEL (14) creatinine 0.95 mg/dL 0.57-1 .00 normal Not Available [facility] ([facility]) [address] [facility] [place], [address], 09/10/2024 11:08:02 09/10/19 25 09/10/2024 COMP. METAB OLIC PANEL (14) eGFR 72 mL/mi n/1.7 3 >59 normal Not Available [facility] ([facility]) [address] [facility] [place], [address], 09/10/2024 11:08:02 09/10/19 25 09/10/2024 COMP. METAB OLIC PANEL (14) BUN/creatini ne ratio 16 9-23 normal Not Available [facility] ([facility]) [address] [place], [address], 09/10/2024 11:08:02 09/10/19 25 09/10/2024 COMP. METAB OLIC PANEL (14) sodium 143 mmol/ L 134-14 4 normal Not Available [facility] ([facility]) [address] [place], [address], 09/10/2024 11:08:02 09/10/19 25 09/10/2024 COMP. METAB OLIC PANEL (14) potassium 4.4 mmol/ L 3.5-5. 2 normal Not Available [facility] ([facility]) [address] [place], [address], 09/10/2024 11:08:02 09/10/19 25 09/10/2024 COMP. METAB OLIC PANEL (14) chloride 103 mmol/ L 96-106 normal Not Available [facility] ([facility]) [address] [place], [address], 09/10/2024 11:08:02 09/10/19 25 09/10/2024 COMP. METAB OLIC PANEL (14) carbon dioxide, total 27 mmol/ L 20-29 normal Not Available [facility] ([facility]) [address] [place], [address], 09/10/2024 11:08:02 09/10/19 25 09/10/2024 COMP. METAB OLIC PANEL (14) calcium 9.7 mg/dL 8.7-10 .2 normal Not Available [facility] ([facility]) [address] [place], [address], 09/10/2024 11:08:02 09/10/19 25 09/10/2024 COMP. METAB OLIC PANEL (14) protein, total 7.4 g/dL 6.0-8. 5 normal Not Available [facility] ([facility]) [address] [facility] [place], [address], 09/10/2024 11:08:02 09/10/19 25 09/10/2024 COMP. METAB OLIC PANEL (14) albumin 4.7 g/dL 3.8-4. 9 normal Not Available [facility] ([facility]) [address] [facility] [place], [address], 09/10/2024 11:08:02 09/10/19 25 09/10/2024 COMP. METAB OLIC PANEL (14) globulin, total 2.7 g/dL 1.5-4. 5 Not Available [facility] ([facility]) [address] [facility] [place], [address], 09/10/2024 11:08:02 09/10/19 25 09/10/2024 COMP. METAB OLIC PANEL (14) bilirubin, total 0.2 mg/dL 0.0-1. 2 normal Not Available [facility] ([facility]) [address] [facility] [place], [address], 09/10/2024 11:08:02 09/10/19 25 09/10/2024 COMP. METAB OLIC PANEL (14) alkaline phosphatase 134 IU/L 44-121 above high normal Not Available [facility] ([facility]) [address] [facility] [place], [address], 09/10/2024 11:08:02 09/10/19 25 09/10/2024 COMP. METAB OLIC PANEL (14) AST (SGOT) 18 IU/L 0-40 normal Not Available [facility] ([facility]) [address] [facility] [place], [address], 09/10/2024 11:08:02 09/10/19 25 09/10/2024 COMP. METAB OLIC PANEL (14) ALT (SGPT) 15 IU/L 0-32 normal Not Available [facility] ([facility]) [address] [facility], [place], [address], 09/10/2024 11:08:02 09/10/19 25 09/10/2024 LIPID PANEL W/ CHOL/ HDL RATIO cholesterol, total 171 mg/dL 100-19 9 normal Not Available [facility] ([facility]) [address] [place], [address], 09/10/2024 11:08:03 09/10/19 25 09/10/2024 LIPID PANEL W/ CHOL/ HDL RATIO triglyceride s 116 mg/dL 0-149 normal Not Available [facility] ([facility]) [address] [facility], [place], [address], 09/10/2024 11:08:03 09/10/19 25 09/10/2024 LIPID PANEL W/ CHOL/ HDL RATIO HDL cholesterol 56 mg/dL >39 normal Not Available [facility] ([facility]) [address] [facility], [place], [address], 09/10/2024 11:08:03 09/10/19 25 09/10/2024 LIPID PANEL W/ CHOL/ HDL RATIO VLDL cholesterol ramakrishna 21 mg/dL 5-40 Not Available [facility] ([facility]) [address] [facility], [place], [address], 09/10/2024 11:08:03 09/10/19 25 09/10/2024 LIPID PANEL W/ CHOL/ HDL RATIO LDL chol calc ([facility]) 94 mg/dL 0-99 Not Available [facility] ([facility]) [address] [place], [address], 09/10/2024 11:08:03 09/10/19 25 09/10/2024 LIPID PANEL W/ CHOL/ HDL RATIO LDL calc comment: ARMHOLE BASTER HAND Not Available [facility] ([facility]) [address] [place], [address], 09/10/2024 11:08:03 09/10/19 25 09/10/2024 LIPID PANEL W/ CHOL/ HDL RATIO T. chol/HDL ratio 3.1 ratio 0.0-4. 4 T. Chol/ HDL Ratio Men Women 1/2 Avg.R isk 3.4 3.3 Avg.R isk 5.0 4.4 2X Avg.R isk 9.6 7.1 3X Avg.R isk 23.4 11.0 Not Available [facility] ([facility]) [address] [facility], [place], [address], 09/10/2024 11:08:03 09/12/1909/11/2024 COLOG UARD cologuard result reportable Negati ve negati ve normal NEGAT RHEA TEST RESUL T. A negat rhea Colog uard resul t indic ates a low likel ihood that a color ectal cance r (CRC) or advan kirstin adeno ma (jim omato us polyp s with more advan kirstin pre-m align ant featu res) is prese nt. The [facility] e that a perso n with a negat rhea Colog uard test has a color ectal cance r is less than 1 in 1500 (nega tive predi ctive value >99.9 %) or has an advan kirstin adeno ma is less than 5.3% (nega tive predi ctive value 94.7% ). These data are based on a prosp ectiv e cross -sect ional study of 10,00 0 indiv idual s at [facility] risk for color ectal cance r who were scree waldemar with both Colog uard and colon oscop y. (Zheng Morris et al, N Engl J Med 2014; 370(1 4):12 86-12 97) The chencho l value (refe rence range ) for this assay is negat rhea. COLOG UARD RE-SC REENI NG RECOM MENDA TION: Perio dic color ectal cance r scree ad is an impor tant part of preve ntive healt hcare for asymp tomat ic indiv idual s at [facility] risk for color ectal cance r. Follo wing a negat rhea Colog uard resul t, the Ameri can Cance r Socie ty and U.S. Multi -Soci ety Task Force scree ad guide lines recom mend a Colog uard re-sc makenzie corona inter elisha of 3 years . Refer ences : Ameri can Cance r Socie ty Guide line for Color ectal Cance r Scree ad: https ://ovi w.can cer.o rg/ca ncer/ colon -rect al-ca ncer/ detec tion- diagn osis- stagi ng/ac s-rec ommen datio ns.ht ml.; Stephen MORENO, Camille BRANDON, Chanel GONZALES, Color ectal Cance r Scree ad: Recom menda tions for Physi cians and Patie nts from the U.S. Multi -Soci ety Task Force on Color ectal Cance r Scree ad , Am Eduardo brown rolog y 2017; 112:1 016-1 030. TEST DESCR IPTIO N: [place] site algor ithmi c simran sis of stool DNA-b iopaloma alvarado with hemog lobin immun oassa y. Quant itati ve value s of indiv idual bioma rkers are not repor table and are not assoc iated with indiv idual bioma rker resul t refer ence range s. Colog uard is inten ded for color ectal cance r scree ad of adult s of eithe r sex, 45 years or older , who are at [facility] for color ectal cance r (CRC) . Colog uard has been appro ksenia for use by the U.S. FDA. The perfo rmanc e of Colog uard was estab lishe d in a cross secti onal study of [facility] adult s aged 50-84 . Colog uard perfo rmanc e in patie nts ages 45 to 49 years was estim ated by tatyana-g melissap simran sis of near- age group s. Colon oscop ies perfo rmed for a posit rhea resul t may find as the most clini elyse signi fican t lesio n: color ectal cance r [4.0% ], advan kirstin adeno ma (incl uding sessi le mahnaz gissell polyp s great er than or equal to 1cm diame ter) [20%] or non- advan kirstin adeno ma [31%] ; or no color ectal neopl dannie [45%] . These estim ates are deriv ed from a prosp ectiv e cross -sect ional scree ad study of 0 indiv idual s at [facility] risk for color ectal cance r who were scree waldemar with both Colog uard and colon oscop y. (Zheng Morris et al, N Engl J Med 2014; 370(1 4):12 86-12 97.) Colog uard may produ ce a false negat rhea or false posit rhea resul t (no color ectal cance r or preca ncero us polyp prese nt at colon oscop y follo w up). A negat rhea Colog uard test resul t does not guara ntee the absen ce of CRC or advan kirstin adeno ma (pre- cance r). The curre nt Colog uard scree ad inter elisha is every 3 years . (Amer ican Cance r Socie ty and U.S. Multi -Soci ety Task Force ). Colog uard perfo rmanc e data in a 0 patie nt pivot al study using colon oscop y as the refer ence metho d can be acces sed [facility] locat ion: www.e xactl abs.c om/leslie waters . Addit ional descr iptio n of the Colog uard test proce ss, warni ngs and preca ution s can be found at www.c magan herrerad.c om. Not Available [facility] [address], [place], [address], 09/16/2024 17:47:18 03/17/20 25 03/19/2025 URINE CULTU RECONSUELO urine culture, routine Final report abnormal Not Available [facility] ([facility]) [address], [place], [address], 03/19/2025 22:06:20 03/17/20 25 03/19/2025 URINE CULTU RE, ROUTI NE result 1 Escher ichia coli abnormal [...] ng units per mL Not Available [facility] ([facility]) [address] [facility], [place], [address], 03/19/2025 22:06:20 03/17/20 25 03/19/2025 URINE CULTU RE, ROUTI NE antimicrobia l susceptibili ty Commen t S = Susce ptibl e; I = Inter media te; R = Resis tant P = Posit rhea; N = Negat rhea MICS are expre ssed in micro grams [...] thopr im/Hawk lfa S Not Available [facility] ([facility]) [address] [facility], [place], [address], 03/19/2025 22:06:20 03/17/20 25 03/17/2025 urina lysis , dipst ick Leukocytes Small Not Available [facility] [address], [place], [address], 03/17/2025 16:28:56 03/17/20 25 03/17/2025 urina lysis , dipst ick Nitrite positi ve Not Available [address], [address], 03/17/2025 16:28:56 03/17/20 25 03/17/2025 urina lysis , dipst ick Urobilinogen .2 Not Available [place] [address], [address], 03/17/2025 16:28:56 03/17/2003/17/2025 urina lysis , dipst ick Protein Negati ve Not Available [address], [address], 03/17/2025 16:28:56 03/17/20 25 03/17/2025 urina lysis , dipst ick pH 5.5 Not Available [address], [address], 03/17/2025 16:28:56 03/17/2003/17/2025 urina lysis , dipst ick Blood Non-He molyze d: Trace Not Available [address], [address], 03/17/2025 16:28:56 03/17/2003/17/2025 urina lysis , dipst ick Specific Acme 1.015 Not Available [address], [address], 03/17/2025 16:28:56 03/17/20 25 03/17/2025 urina lysis , dipst ick Ketone Negati ve Not Available [address], [address], 03/17/2025 16:28:56 03/17/20 25 03/17/2025 urina lysis , dipst ick Bilirubin Negati ve Not Available [address], [address], 03/17/2025 16:28:56 03/17/20 25 03/17/2025 urina lysis , dipst ick Glucose Negati ve Not Available [address], [address], 03/17/2025 16:28:56 03/17/20 25 03/17/2025 urina lysis , dipst ick Appearance Clear Not Available [address], [address], 03/17/2025 16:28:56 03/17/20 25 03/17/2025 urina lysis , dipst ick Color Yellow Not Available [address], [address], 03/17/2025 16:28:56 09/20/19 25 09/16/2024 MAMMO , scree ad, digit al, bilat eral No observ ation record ed. [facility] [address], [place], [address], 09/19/2024 13:22:52 Result Notes None recorded. Problems Name Problem SNOMED Code Status Onset Date Resolution Date Notes Provider Name and Address Organization Details Recorded Time Intracranial aneurysm 808194627 Active 2020 Alycia Stears null, [place] - [facility] 15:55:05 Subarachnoid hemorrhage 18046727 Active 2020 Alycia Stears null, [place] - [facility] 15:55:22 Problem Notes None recorded. Procedures Surgical History Date Name Laterality Status Provider Name and Address Organization Details Recorded Time Date of Last Mammogram completed Alycia Stears [place] - [facility] 09/19/2024 11:00:10 Imaging Results [...] Available Not Available Vitals Date Recorded Body weight Body mass index (BMI) Body height Body temperature Respiratory rate Oxygen saturation Oxygen saturation in Arterial blood by Pulse oximetry Heart rate Systolic And Diastolic Provider Name and Address Organization Details Last Updated DateTime 5 03337.6 3 g 27.8 kg/m2 165.1 cm 97.9 [degF] 18 /min 95 % 95 % 84 /min 118/78 mm[Hg] Alycia Stears [place] - [facility] 15:53:13 Date Recorded Body height Respiratory rate Body mass index (BMI) Body weight Heart rate Oxygen saturation Oxygen saturation in Arterial blood by Pulse oximetry Systolic And Diastolic Provider Name and Address Organization Details Last Updated DateTime 5 165.1 cm 18 /min 25.6 kg/m2 33306.2 2 g 72 /min 96 % 96 % 120/74 mm[Hg] Alycia Stears [place] - [facility] 16:25:27 Social History Question Answer Notes LastModified by Organizat ion Details LastModified Time Tobacco Smoking Status Never Smoker Alycia Stears null, [place] - [facility] 09/09/2024 15:54:33 Do [...] Or The Highest Degree You Have Received? [id number] Information not available 09/09/2024 Have There Been Any Changes To Your Family Or Social Situation? No Information no t available 09/09/2024 What Is The Fluoride Status Of Your Home? Unknown Information not available 09/09/2024 Do You Have A Medical Power Of Safety Equipment Testing Specialist? No Information not available 09/09/2024 What Was [...] not available 09/09/2024 What is your occupation? [employer] Information not available 09/09/2024 Do you have difficulty dressing, bathing, grooming, or toileting? No Information not available 09/09/2024 What is your exercise level? Occasional Information not available 09/09/2024 Mental Status Question Answer Note LastModified by Organizat ion Details LastModified Time Do you feel stressed (tense, restless, nervous, or anxious, or unable to sleep at night)? [id number] Information not available 09/09/2024 Do you have [...] Hep B, adult 000 completed Not Available [facility] 03/17/2025 15:22:01 COVID-19, mRNA, LNP-S, PF, 30 mcg/0.3 mL dose 021 completed Not Available [facility] 03/17/2025 15:22:01 COVID-19, mRNA, LNP-S, PF, 30 mcg/0.3 mL dose 021 completed Not Available [facility] [facility] 03/17/2025 15:22:01 Tdap 025 cancelled patient objection Coty Skaggs, GUN [employer] [address], [place], [address], [place] [facility] 03/17/2025 17:06:49 zoster recombinant 025 cancelled patient objection Coty Skaggs, [employer] [address], [place], [address], [place] [facility] 03/17/2025 17:06:49 Pneumococcal conjugate PCV20, polysaccharide XFV111 conjugate, adjuvant, PF 025 cancelled patient objection Coty Skaggs, [employer] [address], [place], [address], [place] [facility] 03/17/2025 17:06:49 Influenza, split virus, trivalent, PF 025 cancelled patient objection Coty Skaggs, [employer] [address], [place], [address], [place] [facility] 03/17/2025 17:06:49 Past Encounters Encounter ID Performer Location Encounter Start Date Encounter Closed Date Diagnosis/Indication Diagnosis SNOMED-CT Code Diagnosis ICD10 Code Diagnosis IMO Codes Diagnosis Note [id number] Coty Skaggs APRN [address] [address] 09/09/2024 15:23:14 09/09/2024 16:46:39 Intracranial aneurysm 304749160 I67.1 follow up with neurosurge ry at Disorder o f thyroid gland 40372216 E07.9 labs Screening for malignant neoplasm of colon 133360852 Z12.11 Screening mammography of bilateral breasts 6461033989 96324 Z12.31 [id number] Coty Skaggs APRN [address] [address] 03/17/2025 15:21:37 03/17/2025 17:00:40 Overweight in adulthood with body mass index of 25 or more but less than 30 468720084 E66.3 Z68.25 7013320660 25.6 Tetanus di phtheria and acellular pertussis vaccination declined 7260455512 2667216 Z28.[address] vaccination declined 7162570888 102 Z28.21 5674078175 Pneumococc al vaccination declined 583563683 Z28.21 57273459 HIV screen ing declined 3366635365 96674 Z53.20 6465885626 Hepatitis C screening declined 0471351208 5105 Z53.20 6064251271 Screening for malignant neoplasm of cervix declined 512629284 Z53.20 4930440191 Influenza vaccination declined 687007783 Z28.21 56954483 Acute urin sharno tract infection 717606213 N39.0 033408 increase fluidscran angel juicewipe front to backvoid after intercours rc not hold urineantib iotics as orderedcot ton underwearr eturn if symptoms worsen or do not improve General ex amination of patient 922821032 Z00.00 Exercises education, guidance, and counseling 878006853 Z71.82 The patient was advised to continue a healthy diet and exercise regularly. stopped drinking soda and has lost 13lbs since last visit in August 2024 Dietary ma nagement surveillance 697436819 Z71.3 Epigastric mass 94620359 2 R19.06 66855218 if pain returns or worsen go to ed- discussed risk Health Concerns Section Related Observation LastModified by Organization Detai ls LastModified Time None Recorded Concern Status LastModified by Organization Details LastModified Time None Recorded Advance Directives Directive N: Payers Insurance Date Sequence Insurance Name Policy Number Policy Gonzalez Covered Member ID Gonzalez Member ID Guarantor Name 03/14/2025 1 MYRIAMJUSTIN (PPO) [id number] 5 Inez Wisdom [id number] Inez Wisdom Notes Date Note Type Note Provider Name and Address Organization Details Recorded Time 09/09/2024 text/html 54 year old female who presents to the office today for anew patient appointment to establish care. pt reports hx of intracranial aneurysm with subarachnoid hemorrhage in 2020. sees neurosurgery at . pt states no other issues at this time Coty Skaggs APRN [address], [place], [address], [place] - [facility] 10/27/2024 09:07:49 03/17/2025 text/html ROS as noted in the HPI 54 year old female who presents to the office today for a 6 month check up, she has concerns ofcloudy/smelling urine, for couple weeksbulge in abdomen- patient thinks a hernia, been there for about 5 yrs but seems to be getting bigger. pt states sometimes she gets pain in the bulge and causes soa Coty Skaggs APRN [address], [place], [address], [place] - [facility] 03/17/2025 17:09:32 OBGyn Episode No OBEpisode recorded.
== END 2025-04-02 23:59 | disposition home or self-care (01) ==
LOC: RAD 14:43
PROVIDERS: PCP Nurse Practitioner Family; Visit Provider Nurse Practitioner Family
DX: R19.06 Epigastric swelling, mass or lump (principal)
CPT/HCPCS: 74150